=== PATIENT | female | born 1985 | race Two or more races ===

== ENCOUNTER 2020-07-24 13:34 | Inpatient (IN) | payer BC ==
[~2020-07-24] VITALS: Ht 157.5 cm; Wt 94.0 kg
[2020-07-24 13:46] VITALS: BP 122/72
[2020-07-24] MEDS ORDERED: BETAMETHASONE 6 MG/ML, 5ML IM ONE ×2 (13:50→14:00)
[2020-07-24] MEDS: SODIUM CHLORIDE FLUSH 10ML SYR IVF SCH (17:30)
[2020-07-24 19:40] VITALS: BP 121/65
[2020-07-25] MEDS ORDERED: ASPIRIN 81 MG TABLET EC ONE (07:21)
[2020-07-25] MEDS ORDERED: PRENATAL VIT/IRON/FA 1 EACH TABLET ONE (07:21)
[2020-07-25] MEDS: SODIUM CHLORIDE FLUSH 10ML SYR IVF SCH ×2 (08:10→20:25)
[2020-07-25] MEDS: HYDROXYCHLOROQUINE 200 MG TABLET PO SCH (08:42)
[2020-07-25] MEDS: PRENATAL VIT/IRON/FA 1 EACH TABLET PO SCH (08:44)
[2020-07-25] MEDS: ASPIRIN 81 MG TABLET CHEW PO SCH (08:44)
[2020-07-25] MEDS ORDERED: BETAMETHASONE 6 MG/ML, 5ML IM ONE (14:30)
[2020-07-26] MEDS: SODIUM CHLORIDE FLUSH 10ML SYR IVF SCH (08:00)
[2020-07-26] MEDS ORDERED: PREN1TAB60 PO (08:25)
[2020-07-26] MEDS ORDERED: PRENATAL VIT/IRON/FA 1 EACH TABLET ONE (08:28)
[2020-07-26] MEDS ORDERED: ASPIRIN 81 MG TABLET EC ONE (08:28)
[2020-07-26] MEDS: PRENATAL VIT/IRON/FA 1 EACH TABLET PO SCH (08:30)
[2020-07-26] MEDS: HYDROXYCHLOROQUINE 200 MG TABLET PO SCH (08:31)
[2020-07-26] MEDS ORDERED: ASPIRIN 81 MG TABLET CHEW ONE (08:32)
[2020-07-26] MEDS: ASPIRIN 81 MG TABLET CHEW PO SCH (08:33)
[2020-07-26] MEDS ORDERED: HYDR200T72 PO (08:47)
== END 2020-07-26 09:15 | disposition home or self-care (01) | DRG 832 ==
LOC: LDOP 13:34 → LDIP 16:08 → OBSVTOIN 16:32
PROVIDERS: ADMIT Obstetrics & Gynecology; ATTEND Obstetrics & Gynecology
DX: O40.3XX0 Polyhydramnios, third trimester, not applicable or unspecified (principal); Q41.0 Congenital absence, atresia and stenosis of duodenum; M06.9 Rheumatoid arthritis, unspecified; Q90.9 Down syndrome, unspecified; Z3A.32 32 weeks gestation of pregnancy; Z79.899 Other long term (current) drug therapy; O36.8330 Maternal care for abnormalities of the fetal heart rate or rhythm, third trimester, not applicable or unspecified; O36.5930 Maternal care for other known or suspected poor fetal growth, third trimester, not applicable or unspecified
CPT/HCPCS: 87635; G0378; J0702